=== PATIENT | female | born 1950 | race Caucasian/White ===

== ENCOUNTER → 2024-02-05 11:18 | Outpatient (REF) | payer OTHER, SELFPAY | LOC: REG 11:18 | PROVIDERS: ATTENDING PHYSICIAN Family Medicine | DX: M25.532 Pain in left wrist (principal) | CPT/HCPCS: 73110 ==

== ENCOUNTER 2024-08-06 12:49 | Emergency (ER) | payer OTHER, SELFPAY ==
[2024-08-06 12:52] VITALS: BP 143/86
[2024-08-06 14:04] LABS: % Basophils 0.3 % (0-2); % Eosinophils 0.5 % (0-6); % Immature Granulocytes 0.2 % (0-0.5); % Lymphocytes 22.7 % (20.5-51.1); % Monocytes 8.5 % (1.7-9.3); % Neutrophils 67.8 % (42.2-75.2); Absolute Lymphocytes 1.4 10^3/uL (1.2-3.4); Absolute Monocytes 0.5 10^3/uL (0.1-0.6); Absolute Neutrophils 4.2 10^3/uL (1.4-6.5); Hematocrit 39.3 % (37.0-47.0); Hemoglobin 13.5 g/dL (12.0-16.0); Mean Corp Hgb Conc. 34.4 g/dL (33.0-37.0); Mean Corpuscular Volume 96.1 fL (81.0-99.0); Nucleated Red Blood Cells % 0 %; Platelet Count 222 10^3/uL (130-400); Red Blood Cell Count 4.09 10^6/uL (4.20-5.40); Red Cell Dist. Width 13.7 % (11.5-14.5); White Blood Cell Count 6.2 10^3/uL (4.8-10.8)
--- NOTE | 2024-08-06 14:04 | ED.GENMED ---
History of Present Illness
General
Chief Complaint: Anxiety
Source: patient and spouse
Time Seen by Provider: 08/06/24 13:33
History of Present Illness
History of Present Illness:
74-year-old female with past medical history of hypothyroidism and newly suspected short-term memory loss being sent to the emergency department by her neurology office for evaluation after patient had a significant anxiety attack while at her
testing for the memory loss earlier today. Spouse and patient both notes she is much more calm now. Patient does admit to having frequent thoughts of what it would be like for her not to be on this earth and admits that she has had these thoughts
over many years but has no plan or intent to harm herself. Patient notes she goes to her primary care doctor regularly who monitors her thyroid. No changes to medications recently. No fevers or infectious symptoms. Patient without any physical
concerns at this time.
Past History
Past History
ED Past Medical History: Hypothyroidism and Other (migraine)
ED Past Surgical History: Gynecological and Tonsilectomy
Social History
Tobacco: Non-smoker
Alcohol: Occasional
Drug: None
Personal:
Living: with family
Family History
Family History: Negative Diabetes or Early CAD
Review of Systems
Review of Systems
All Other Systems: ROS reviewed and negative except as documented in HPI and ROS
Phy Exam
Physical Exam
Physical Exam:
GENERAL: Alert , in no apparent distress
EYE: conjunctiva clear
NECK: Supple
ENT: o/p clr, mmm.
CARDIAC: Regular rate and rhythm
LUNGS: Clear breath sounds bilaterally, no acute respiratory distress, no wheezes/rales/rhonchi
NEUROLOGICAL: Alert and oriented
SKIN: Warm and dry, skin intact.
MUSCULOSKELETAL: well perfused.
PSYCH: Normal and appropriate interaction.
Scores
Heart Failure Risk
Heart Failure Risk Score: Not Applicable
Heart Score for Chest Pain Patients
STEMI patient?: Not applicable
Withdrawal Assessment of Alcohol
Withdrawal Assessment Completed?: Not applicable
Course
Orders/Labs/Results
Orders:
Orders
08/06/24 12:57
1:1 Observation - Suicide/ Violent Behavior As Directed
Crisis Consult Urgent
Reason for Consult: SI
08/06/24 13:53
Complete Blood Count/With Diff Urgent
Comprehensive Metabolic Panel Urgent
TSH Urgent
Abnormal Lab Results
08/06/24
13:53
RBC 4.09 L 10^6/uL
(4.20-5.40)
MCH 33.0 H pg
(27.0-31.0)
08/06/24 13:53
Vital Signs
Initial and Last Documented VS:
Initial Vital Signs
Temp Pulse Resp BP Pulse Ox
98.3 F 82 16 143/86 98
08/06/24 12:52 08/06/24 12:52 08/06/24 12:52 08/06/24 12:52 08/06/24 12:52
Last Documented Vital Signs
Temp Pulse Resp BP Pulse Ox
98.3 F 82 16 143/86 98
08/06/24 12:52 08/06/24 12:52 08/06/24 12:52 08/06/24 12:52 08/06/24 12:52
MDM/Problems Addressed
Differential Diagnosis Includes:
Anxiety/panic attack, depressive disorder, early dementia, thyroid disorder
MDM/Problems Addressed:
74-year-old female presenting to the emergency department for evaluation after having an anxiety attack while at neurotesting today for her short-term memory loss. Patient sent to the ER for medical screening exam to be cleared for crisis
consultation. Patient without any physical complaints at this time. Does admit to thoughts of not being on this earth but no specific plan or intent to harm herself. Medical screening labs ordered. Will consult crisis team.
*Pulse Oximetry
Patient hypoxic: no
*Critical Care Note
Total Time (30-74mins, 75-104mins- exclusive of procedures): Not Applicable
Data Reviewed
Review of Other/Old Records Reveals: Labs and Records
Source: patient, records and spouse
Patient Management
Escalation/DeEscalation of care consider admission/obs:
Patient seen by Kyle Guajardo. Stable for outpatient management with PCP and neuropsych as scheduled. Patient and significant other aware of return precautions to the ER
ED Attending Note
-
Portions of this chart may have been created with voice recognition software.� Occasional wrong word or��sound alike� substitutions may have occurred due to the inherent limitations of voice recognition software.
Discharge Plan
Departure
Patient Disposition: Home (Routine Discharge)
Date of Disposition: 08/06/24
Time of Disposition: 14:20
Patient with high blood pressure during this ER visit?: No
Discharge Problem:
Anxiety
Instructions: Anxiety, Adult (DC)
Prescriptions:
No Action
amoxicillin-pot clavulanate 1 TABLET tablet
1 tab PO Q12 Qty: 20 0RF
oxycodone-acetaminophen [Percocet] 5-325 mg tablet
1 tab PO Q8H PRN (Reason: pain) Qty: 10 0RF
Referrals:
Rene Patterson, DO [Family Provider] -
Interventions
Interventions:
*Risk Screen - Suicide Last Done: 08/06/24 12:55
*General Assessment Last Done: 08/06/24 14:32
*Neglect/Abuse Screening Last Done: 08/06/24 14:32
ED- Fall Risk Assessment Last Done: 08/06/24 14:32
*ED COVID-19 Vaccine History Last Done: 08/06/24 14:32
*Nursing Disposition Last Done: 08/06/24 14:32
ED- Cardiac Assessment Last Done: 08/06/24 14:32
ED- Neurological Assessment Last Done: 08/06/24 14:31
ED-Psychological Assessment Last Done: 08/06/24 14:31
ED- Pulmonary Assessment Last Done: 08/06/24 14:32
Discharge Date and Time
Print Language: UZBEK
[2024-08-06 14:32] VITALS: BMI 24.6
[2024-08-06 14:34] LABS: ALT (SGPT) 19 U/L (0-35); AST (SGOT) 30 U/L (14-36); Albumin 4.5 g/dl (3.5-5.0); Alkaline Phosphatase 163 U/L (38-126); Blood Urea Nitrogen 13 mg/dl (7-17); Calcium 9.9 mg/dl (8.4-10.2); Carbon Dioxide 26 mmol/L (22-30); Chloride 102 mmol/L (98-107); Estimated Creatinine Clearance 54 ml/min; Glucose 107 mg/dl (70-99); Potassium 3.6 mmol/L (3.5-5.1); Sodium 142 mmol/L (135-145); Total Bilirubin 0.9 mg/dl (0.2-1.3); Total Protein 7.3 g/dl (6.3-8.2); eGFR > 60.00
[2024-08-06 14:50] LABS: TSH < 0.02 uIU/ml (0.47-4.68)
== END 2024-08-06 14:33 | disposition home or self-care (01) ==
LOC: EMR 12:49
PROVIDERS: Physician Assistant Medical; EMERGENCY PHYSICIAN Student in an Organized Health Care Education/Training Program; FAMILY PHYSICIAN Family Medicine
DX: F41.9 Anxiety disorder, unspecified (principal); E03.9 Hypothyroidism, unspecified
CPT/HCPCS: 99283; 80053; 84443; 85025

== ENCOUNTER 2025-01-28 22:19 | Emergency (ER) | payer OTHER, SELFPAY ==
[2025-01-28 22:28] VITALS: BP 114/58
[2025-01-28 22:46] LABS: Hematocrit 45.6 % (37.0-47.0); Hemoglobin 15.1 g/dL (12.0-16.0); Mean Corp Hgb Conc. 33.1 g/dL (33.0-37.0); Mean Corpuscular Volume 93.6 fL (81.0-99.0); Mean Platelet Volume 8.7 fL (7.4-10.4); Platelet Count 284 10^3/uL (130-400); Red Blood Cell Count 4.87 10^6/uL (4.20-5.40); Red Cell Dist. Width 12.4 % (11.5-14.5)
[2025-01-28 22:59] LABS: Blood Urea Nitrogen 4 mg/dl (7-17); Calcium 9.3 mg/dl (8.4-10.2); Carbon Dioxide 29 mmol/L (22-30); Chloride 100 mmol/L (98-107); Estimated Creatinine Clearance 72 ml/min; Glucose 101 mg/dl (70-99); Sodium 141 mmol/L (135-145); eGFR > 60.00
--- NOTE | 2025-01-28 23:33 | ED.GENMED ---
History of Present Illness
General
Chief Complaint: Change in Mental Status
Source: patient
Exam Limitations: dementia
Time Seen by Provider: 01/28/25 23:17
Nursing documentation reviewed up to this point in time: agreed with
History of Present Illness
History of Present Illness:
74-year-old female apparently brought in by EMS boyfriend called she has had frequent falls agitated she has dementia apparently cannot care for her anymore
Past History
Past History
ED Past Medical History: Hypothyroidism and Other (migraine)
ED Past Surgical History: Gynecological and Tonsilectomy
Social History
Tobacco: Non-smoker
Alcohol: Occasional
Drug: None
Personal:
Living: with family
Employment: Not employed
Family History
Family History: Negative Diabetes or Early CAD
Review of Systems
Review of Systems
All Other Systems: Not applicable
Phy Exam
Physical Exam
Physical Exam:
Physical Exam
General: 74-year-old female confused, moves all extremities
Neck: No tongue
Heart: s1/s2 regular rate and rhythm, no murmur. equal radial pulses.
Lungs: no acute respiratory distress. clear bilaterally
Neuro: Moves all extremities confused oriented to person
Skin: no rash
Psychiatric: Agitated at time
Extremities: no edema.
Course
Orders/Labs/Results
Orders:
Orders
01/28/25 22:38
Basic Metabolic Panel Urgent
CBC/No Diff [Complete Blood Count/No Diff] Urgent
01/28/25 23:30
Haloperidol Lactate [Haldol] 3 mg IM NOW STA
01/28/25 23:31
Straight cath- Treatment ONCE
01/29/25 00:09
UA Reflex to Culture [Urinalysis Reflex To Culture] Urgent
Date Specimen was Collected: 01/29/25
Time Specimen was Collected: 00:04
Urine Microscopic Reflex Cult Urgent
Urine Culture Urgent
JENNIFER Source: U
Specimen Description:
Date Specimen was Collected: 01/29/25
Time Specimen was Collected: 00:04
01/29/25 00:43
Haloperidol Lactate [Haldol] 5 mg .ROUTE .STK-MED ONE
01/29/25 01:00
Case Management Consult ONCE
Case Management Consult: Discharge Planning
01/29/25 01:45
CT Cervical Spine W/o Iv Contr Urgent
Reason For Exam: fall
CT Head W/o Iv Contrast Urgent
Reason For Exam: fall
Abnormal Lab Results
01/28/25 01/29/25
22:38 00:09
BUN 4 L mg/dl
(7-17)
Creatinine 0.5 L mg/dL
(0.6-1.0)
Glucose 101 H mg/dl
(70-99)
Leukocyte Esterase Rfl 1+ A
(Negative)
Urine WBC (Reflex) 21-25 A /HPF
(0-5)
Urine Bacteria (Reflex) Many A
(Negative)
01/28/25 22:38
01/28/25 22:38
Vital Signs
Initial and Last Documented VS:
Initial Vital Signs
Temp Pulse Resp BP Pulse Ox
97.6 F 91 16 114/58 99
01/28/25 22:28 01/28/25 22:28 01/28/25 22:28 01/28/25 22:28 01/28/25 22:28
Last Documented Vital Signs
Temp Pulse Resp BP Pulse Ox
97.6 F 87 21 114/58 99
01/28/25 22:28 01/28/25 23:15 01/28/25 23:15 01/28/25 22:28 01/28/25 22:28
MDM/Problems Addressed
Differential Diagnosis Includes:
Dementia psychosis UTI not appear to be intoxicated occult trauma
MDM/Problems Addressed:
Agitation
Chronic conditions affecting care: Neurological disorder and Psychiatric illness
Acute Exacerbation and/or Progression of Chronic Illness: Neurological disorder and Psychiatric illness
*Critical Care Note
Total Time (30-74mins, 75-104mins- exclusive of procedures): Not Applicable
Update Note
Update Note:
Update labs noted CTs noted patient calm after Haldol per RN
1:10 AM call to significant other primary contact to see if he is able to take her home
Voicemail left
2:10 AM patient resting comfortably at this point I see no indication for medical admission
ED Attending Note
-
Portions of this chart may have been created with voice recognition software.� Occasional wrong word or��sound alike� substitutions may have occurred due to the inherent limitations of voice recognition software.
Discharge Plan
Departure
Prescriptions:
No Action
amoxicillin-pot clavulanate 1 TABLET tablet
1 tab PO Q12 Qty: 20 0RF
oxycodone-acetaminophen [Percocet] 5-325 mg tablet
1 tab PO Q8H PRN (Reason: pain) Qty: 10 0RF
Referrals:
UNKNOWN - PT DOES,NOT KNOW [Family Provider] -
Interventions
Interventions:
*Risk Screen - Suicide Last Done: 01/28/25 22:28
*General Assessment Last Done: 01/28/25 22:28
*Neglect/Abuse Screening Last Done: 01/28/25 22:37
*ED- Fall Risk Assessment Last Done: 01/28/25 22:28
*ED COVID-19 Vaccine History Last Done: 01/28/25 22:28
ED- Neurological Assessment Last Done: 01/28/25 22:28
Discharge Date and Time
Print Language: UPPER SORBIAN
[2025-01-28] MEDS: HALDOL 3 MG IM (23:35)
[2025-01-29] VITALS (10 sets, daily range): BP systolic 123–144; BP diastolic 43–71
[2025-01-29 00:36] LABS: Urine Albumin Negative (Neg - Trace); Urine Bilirubin Negative (Negative); Urine Character Clear (Clear); Urine Color Yellow; Urine Glucose Negative (Negative); Urine Ketone Negative (Negative); Urine Leukocyte 1+ (Negative); Urine Nitrite Negative (Negative); Urine Occult Blood Negative (Negative); Urine Specific Gravity 1.005 (<1.030); Urine Urobilinogen Negative (Neg - 1+)
[2025-01-29 01:42] LABS: Urine Bacteria Many (Negative); Urine Red Blood Cell 0-2 /HPF (0-2)
[2025-01-29 01:43] LABS: Urine White Cell 21-25 /HPF (0-5)
--- NOTE | 2025-01-29 08:36 | CM ---
Addendum entered by Kiley Xie RN 01/29/25 11:13:
CM reviewed medical records. Patient has been recommended for outpatient [facility]. CM provided boyfriend with information on [facility]. CM further provided information on [facility].
CM discussed medical POA for patient. CM provided written information on Advanced Directives.
Addendum entered by Kiely Xie RN 01/29/25 09:23:
CM spoke with director regarding placement. CM was advised to request psychiatry consult for further assistance. CM advised patient's boyfriend that placement in SNF will be difficult due to patient's aggressive physical behavior.
CM updated emergency room physician.
Original Note:
CM reviewed medical records. CM met with patient and partner in room. Partner reports diagnosed dementia and reports that patient has been increasingly more agitated. Of note, patient was hitting staff while in the emergency room.
Patient's partner is agreeable to discuss [facility] placement. CM spoke with ER physician. Plan for crisis consult.
--- NOTE | 2025-01-29 10:44 | CON.MD ---
Consultation - Medical
-
patient seen chart reviewed. spoke with nursing and with dr melendez. the patient's partner of 12 years was at the bedside. partner describes that for three years patient has been increasingly memory impaired. at this point she is often very
fearful...she obsesses about things...lights she sees outside the window....whether the cats are taken care of etc etc. she can get a little agitated but never becomes aggressive physically although i am told there were isael e moments of aggression
here in the er when there was discussion of [facility] admit which patient refused.she was given haldol for agitation. she was seen by crisis who did not feel she met criteria for admit. the patient was actually being seen for neuro psych testing
but she only tolerated 15 minutes and she and partner left the office. the patient was indeed very cognitively impaired. she was oriented only to person. she could not answer most of the questions i asked even looked at partner when i asked her
how many children she had. she could not tell me how many times she had been (there) and whether her marriages ended in divorce or (the latter). she could not tell me what job she had prior to prison. at no point did she become
verbally or physically agitated. she admitted she is anxious and sometimes feels s/w depressed but has never felt she needed to seek rx other than talking in the past to her pcp. she is not suicidal. she was not obviously psychotic although i
wondered if some of her concners re 'lights' had to do with fears that someone was watching her but when i asked this she said no. sleep and appetite fair.
past psych hx see above.
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
fh denied
substance abuse denied
social resides w partner of 12 years. thrice two kids patient has grandkids she sees retired
mse alert oriented to person only. speech sparse. could not answer many questions given significant memory impairment mood is neutral affect constricted no si no hi cognition very impaired likely prior normal intelligence insight judgment
impaired
dx dementia
plan patient is not agreeable to in patient psych and i do not feel she necessarily meets criteria. she was not at all agitated when i saw her. she would benefit from being seen by out pt [facility] psychiatrist. partners two children are ER docs at ""[employer] in [facility]. he will ask them to help with finding a [facility] psych who could see her. her son is willing to pay out of pocket. they may need to think about placement in a memory care unit at some point in the future. will check b12 folate
vit d and tsh w reflex to t4. if patient does become aggressive she could be 302 committed. family should consider a medical power of business control specialist .
[2025-01-29 12:00] LABS: Vitamin D, 25-OH*** 38.1 ng/mL (30-80)
[2025-01-29 12:14] LABS: TSH Reflex To Free T4 < 0.02 uIU/ml (0.47-4.68)
--- NOTE | 2025-01-29 12:18 | ED.CRISIS ---
ED Crisis Note
ED Crisis Note
Subjective:
Patient resting comfortably. Partner at bedside. No complaints from patient or partner. Patient is not been agitated or combative since last night.
Objective:
General: Resting comfortably in bed watching TV
Respiratory: No respiratory distress
Cardio: Regular rate and rhythm
Psych: No active SI, HI, hallucinations delusions or agitation
Assessment/Plan:
Patient signed out pending case management evaluation. Case management unfortunately cannot place patient given patient's agitation. Psychiatry then evaluated patient. At this time patient is not agreeable to inpatient psych and she does not meet
criteria. She has not been agitated. Patient's partner states that it was more the confusion that he was concerned about. After a lengthy discussion with patient, patient's partner and psych they will find outpatient [facility]. They were
advised if she were to become aggressive at home to bring her to the emergency department for [address] orders for vitamin and thyroid. We did call lab and unfortunately these results will not be available for hours.
Patient's partner is requesting to go home which is appropriate while these results are pending.
[2025-01-29 12:41] LABS: Free T4 1.71 ng/dl (0.78-2.19)
[2025-01-29 12:50] LABS: Folate 10.8 ng/ml (2.76-20); Vitamin B12 711 pg/ml (239-931)
== END 2025-01-29 13:21 | disposition home or self-care (01) ==
LOC: EMR 22:19
PROVIDERS: Emergency Medicine; CONSULT PHYSICIAN Psychiatry & Neurology Psychiatry; EMERGENCY PHYSICIAN Emergency Medicine
DX: F03.911 Unspecified dementia, unspecified severity, with agitation (principal); E03.9 Hypothyroidism, unspecified
CPT/HCPCS: 99284; 70450; 72125; 80048; 81003; 81015; 82306; 82607; 82746; 84439; 84443; 85027; 87077; 87086; 87186

== ENCOUNTER 2025-05-15 02:18 | Inpatient (IN) | payer OTHER, SELFPAY ==
[2025-05-14 21:33] VITALS: BP 110/61
[2025-05-14 21:37] VITALS: BP 110/61
[2025-05-14 21:43] VITALS: BMI 22.0
[2025-05-14 23:09] LABS: AST (SGOT) 54 U/L (14-36); Alkaline Phosphatase 163 U/L (38-126); Blood Urea Nitrogen 8 mg/dl (7-17); Calcium 8.9 mg/dl (8.4-10.2); Carbon Dioxide 21 mmol/L (22-30); Chloride 95 mmol/L (98-107); Estimated Creatinine Clearance 41 ml/min; Glucose 97 mg/dl (70-99); Lipase 163 U/L (23-300); Potassium 1.9 mmol/L (3.5-5.1); Sodium 127 mmol/L (135-145); Total Bilirubin 2.1 mg/dl (0.2-1.3); Total Protein 6.8 g/dl (6.3-8.2); eGFR 58.39
[2025-05-14 23:19] LABS: Urine Albumin 1+ (Neg - Trace); Urine Bilirubin Negative (Negative); Urine Character Clear (Clear); Urine Color Yellow; Urine Glucose Negative (Negative); Urine Ketone Negative (Negative); Urine Leukocyte 2+ (Negative); Urine Nitrite Positive (Negative); Urine Occult Blood 2+ (Negative); Urine Urobilinogen Negative (Neg - 1+)
[2025-05-14 23:20] LABS: ALT (SGPT) 45 U/L (0-35)
[2025-05-14 23:32] LABS: Urine Bacteria Moderate (Negative); Urine White Cell 26-30 /HPF (0-5)
--- NOTE | 2025-05-14 23:34 | ED.GENMED ---
History of Present Illness
General
Chief Complaint: Failure to Thrive
Source: patient, spouse, family (Son who is also at bedside) and previous hospital records (ED visit January of this year with concerns for dementia, agitation. Evaluated by psychiatrist. Discharged to home.)
Exam Limitations: dementia
Time Seen by Provider: 05/14/25 23:29
Nursing documentation reviewed up to this point in time: agreed with
History of Present Illness
History of Present Illness:
This is a 74-year-old woman who resides at home with her . She has history of advanced dementia with intermittent episodes of agitation. Evaluated in this ED January of this year with concern for progressive memory loss over several years
with newer onset of agitation, aggression. Required a dose of Haldol during that ED visit. Was evaluated by psychiatrist. There was no evidence of psychosis. Patient declined inpatient psychiatric treatment and was discharged to home with
recommendations to follow-up with geropsychiatry. According to they did have an initial visit with [facility] psychiatrist but patient became agitated and left within 15 minutes.
She has had slow steady decline in functioning over the past 2 months and more recently has had very poor oral intake over the past several days with onset of diarrhea over the past several days. Progressive weakness over the past few days. There
has been no report of fever, no fall.
She has history of hypothyroidism, maintained on Synthroid.
TSH during ED visit January of this year showed significantly suppressed TSH with normal free T4. does not believe Synthroid was adjusted. At this point is unclear if she has been taking her medication.
Past History
Past History
ED Past Medical History: Hypothyroidism, Psychiatric (Dementia) and Other (migraine)
ED Past Surgical History: Gynecological and Tonsilectomy
Social History
Tobacco: Non-smoker
Alcohol: Occasional
Drug: None
Personal:
Living: with family
Employment: Not employed
Family History
Family History: Negative Diabetes or Early CAD
Phy Exam
Physical Exam
Physical Exam:
GENERAL: 74-year-old woman appears her stated age, awake and alert, minimally verbal. Sporadically answering yes and no questions appropriately. and son are at bedside providing majority of history.
EYE: pupils equal and reactive. anicteric
NECK: Supple, nontender, no meningismus, no significant adenopathy.
ENT: posterior pharynx is clear, oral mucosa is mildly dry. No rhinorrhea.
CARDIAC: Regular rate and rhythm. no murmur.
LUNGS: Clear breath sounds bilaterally, no acute respiratory distress, no wheezes/rales/rhonchi
ABDOMEN: Soft, nondistended, without focal tenderness, no r/g, no cvat. normoactive BS.
NEUROLOGICAL: Awake and alert, oriented x 2, no focal neuro deficits.
SKIN: Warm and dry, normal color, skin intact. No rash.
MUSCULOSKELETAL: No C/C/E. peripheral pulses are full and equal b/l. No palpable tenderness.
PSYCH: Awake and alert, oriented x 2. Moderately guarded. Sparse speech.
Course
Orders/Labs/Results
Orders:
Orders
05/14/25 22:13
IV Insert/Care/Rem.- Treatment PRN
05/14/25 22:33
Complete Blood Count/With Diff Urgent
Comprehensive Metabolic Panel Urgent
Direct Bilirubin Urgent
Comment: ADD ON
Lipase Urgent
Magnesium Urgent
TSH Reflex To Free T4 Urgent
05/14/25 22:59
Straight cath- Treatment ONCE
05/14/25 23:03
Osmolality, Random Urine Urgent
Date Specimen was Collected: 05/14/25
Time Specimen was Collected: 22:59
Comment: ADD ON
Urinalysis Reflex To Culture Urgent
Date Specimen was Collected: 05/14/25
Time Specimen was Collected: 22:59
Urine Microscopic Reflex Cult Urgent
Urine Culture Urgent
JENNIFER Source: U
Specimen Description:
Date Specimen was Collected: 05/14/25
Time Specimen was Collected: 22:59
05/14/25 23:16
EKG [Electrocardiogram (*1)] Urgent
Reason for Study: Abdominal Pain
EKG- Treatment ONCE
05/14/25 23:48
0.9% Sodium Chloride 1000 ml [Nss] 1,000 ml IV 150 mls/hr
Metoclopramide [Reglan] 5 mg IV NOW STA
05/14/25 23:50
Magnesium Sulfate 2 Gram/50 ml [Magnesium Sulfate] 2 gram in 50 ml IV NOW
Potassium Chloride [KCl] 40 meq PO NOW STA
05/14/25 23:56
Add On- LAB Urgent
Tests Added?: LFT's, lipase
05/15/25 00:00
Potassium Chloride [KCl] 40 meq 0.9% Sodium Chloride 250 ml [Nss] 250 ml IV NOW
05/15/25 01:03
US Abdomen Complete/Upper Urgent
Comment:
Reason For Exam: vomiting, elevated LFT's.
05/15/25 01:04
CefTRIAXone [Rocephin] 1,000 mg IV NOW STA
05/15/25 01:07
Add On- LAB Urgent
Tests Added?: TSH w reflex to free T-4
05/15/25 01:39
Admit/Transfer Patient As Directed
Co-Sign Provider:
Level of Care: Inpatient admission
Assign to:: Telemetry
Physician / Group: Iveth
Diagnosis: Hypokalemia
Reason for Telemetry: Other
Other Reason for Telemetry: severe Hypokalemia
Date to Stop Telemetry: 05/17/25
Time to Stop Telemetry: 11:00
Reason for Hospitalization: severe hypokalemia and dehydration
Expected length of stay greater than two midnights?: Yes
ELOS- Estimated Length of Stay in days: 2
I certify the patient meets the requirements for IP care: Yes
PRN Pain Medication Management As Directed
May give lesser potent ordered pain med per pt: Yes
preference::
Protocol:: Medication orders for pain may be administered in a
manner that supports deferring to patient preference
when the pt is:
- Requesting an ordered lesser potent pain medication.
Least to most potent pain medications are defined
as: acetaminophen < NSAID < tramadol < opioids
(morphine, oxycodone, hydromorphone).
- Requesting a lesser dose of the same medication IF
ORDERED.
- Requesting a less intrusive route of administration
if both routes are prescribed by the provider (PO <
IV).
05/15/25 01:42
Code Status As Directed
Resuscitation Status: Full Code
05/15/25 01:54
Osmolality, Random Urine Routine
Urine Sodium Routine
05/15/25 03:13
Acetaminophen [Tylenol] 650 mg PO Q4HPRN PRN
Dextrose 5%/0.9%Sodchl 1000 ml [D5/0.9% Sodium Chloride] 1,000 ml Potassium Chloride [KCl] 40 meq Mvi, Adult [Multivitamin] 10 ml Magnesium Sulfate 1 grams Thiamine Injection 100 mg FOLic ACID [Folvite] 1 mg IV 125 mls/hr
Loperamide [Imodium] 2 mg PO Q4HPRN PRN
Mag Hydrox/Al Hydrox/Simeth [Maalox] 30 ml PO Q6HPRN PRN
Metoclopramide [Reglan] 5 mg IV Q6HPRN PRN
05/15/25 03:13
Activity As Directed
Activity Level: With Assistance
Vital Signs As Directed
Frequency: Per unit guidelines
O2 Therapy [RESP] Routine
Nasal Cannula Liter Flow: 2 LPM
Titrate/Wean O2 to maintain O2 sat greater than (%): 93
Pulse Ox/spot Check [RESP] Routine
Quantity: 1
DX Deep Vein Thrombosis Video Routine
05/15/25 Breakfast
Regular
At Your Request: Non-Participating
Basic Metabolic Panel IN AM
Complete Blood Count/No Diff IN AM
Folate IN AM
Magnesium IN AM
Vitamin B12 IN AM
Levothyroxine [Synthroid] 125 mcg PO DAILY @ 0600
05/15/25 08:00
Famotidine [Pepcid] 20 mg PO DAILY
Heparin 5,000 units SC Q8
Multivitamin [Theragran] 1 tablet PO DAILY
05/15/25 15:00
BMP [Basic Metabolic Panel] Routine
Magnesium Routine
05/16/25 00:00
CefTRIAXone [Rocephin] 1,000 mg IV Q24H
05/17/25 11:00
DC Protocol for Telemetry ONCE
Abnormal Lab Results
05/14/25 05/14/25
22:33 23:03
RBC 4.09 L 10^6/uL
(4.20-5.40)
MCH 35.5 H pg
(27.0-31.0)
MCHC 37.9 H g/dL
(33.0-37.0)
RDW 18.5 H %
(11.5-14.5)
Sodium 127 L mmol/L
(135-145)
Potassium 1.9 L* mmol/L
(3.5-5.1)
Chloride 95 L mmol/L
(98-107)
Carbon Dioxide 21 L mmol/L
(22-30)
Magnesium 1.3 L mg/dl
(1.6-2.3)
Total Bilirubin 2.1 H mg/dl
(0.2-1.3)
AST 54 H U/L
(14-36)
ALT 45 H U/L
(0-35)
Alkaline Phosphatase 163 H U/L
(38-126)
Ur Occult Blood Reflex 2+ A
(Negative)
Urine Nitrite (Reflex) Positive A
(Negative)
Leukocyte Esterase Rfl 2+ A
(Negative)
Urine RBC 3-6 A /HPF
(0-2)
Urine WBC (Reflex) 26-30 A /HPF
(0-5)
Urine Bacteria (Reflex) Moderate A
(Negative)
Urine Osmolality 232 L mOsm/kg
(300-900)
Urine Albumin (Reflex) 1+ A
(Neg - Trace)
05/14/25 22:33
05/14/25 22:33
Vital Signs
Initial and Last Documented VS:
Initial Vital Signs
BP
110/61
05/14/25 21:33
Last Documented Vital Signs
Temp Pulse Resp BP Pulse Ox
98.7 F 63 22 99/54 100
05/15/25 03:33 05/15/25 03:33 05/15/25 03:33 05/15/25 03:33 05/15/25 03:33
MDM/Problems Addressed
Differential Diagnosis Includes:
Concern for dehydration, electrolyte abnormality, infectious colitis versus functional diarrhea, concern for exacerbation of thyroid disorder, UTI.
Significant concern for progression of dementia with now failure to thrive, refusal to eat etc.
Thus far patient has remained cooperative. There has been no episodes of aggression/agitation.
Vital signs within normal limits.
Labs thus far remarkable for severe hypokalemia with potassium of 1.9. Mild hyponatremia at 127. Normal BUN and creatinine. Minimally elevated LFTs and mildly elevated total bili at 2.1. Abdomen is soft without appreciable tenderness. Will
check abdominal ultrasound to assess for potential occult cholecystitis as cause for poor oral intake, diarrhea.
CBC is unremarkable.
Urinalysis concerning for UTI. Nitrite positive. Moderate bacteria. 26-30 WBCs.
EKG shows normal sinus rhythm at 60, prolonged QT with U waves. This is likely related to severe hypokalemia.
Will urgently replete potassium with IV K rider and will give an oral dose of potassium as well. She does note intermittent mild nausea, no episodes of vomiting but will give IV dose of Reglan for nausea. Will avoid Zofran due to prolonged QT.
History of hypothyroidism, questionable compliance with Synthroid. TSH suppressed on testing in January with normal free T4. Will reassess.
Chronic conditions affecting care: Neurological disorder (Advanced dementia), Psychiatric illness and Other (Hypothyroidism with suppressed TSH noted on testing January of this year)
*Radiology
Radiology exam reviewed: radiology read reviewed (Abdominal ultrasound-Limited study due to portable exam but gallbladder appears within normal limits. No stones nor sludge. No wall thickening nor pericholecystic fluid.)
*Pulse Oximetry
SaO2: 100
Oxygen Mode of Delivery: Room air
Patient hypoxic: no
*EKG
Interpreted by ED Provider?: Yes
Interpretation: abnormal
Comparison EKG: changes noted (Long QT is new compared to previous EKG October 2021)
Rate: normal
Rhythm: sinus
[place]: normal axis
Interval: long QT
QRS Pattern: normal QRS and poor R-wave progression
Ischemia: non-specific ST changes
*Food And Nutrition Services Assistant Interpretation
Rate: normal
Interpretation: normal
Rhythm: sinus
*Critical Care Note
Total Time (30-74mins, 75-104mins- exclusive of procedures): 30
comment:
Critical care statement: A total of 30 minutes of critical care time was provided for this patient. This includes management of unstable vital signs, evaluation of the patient at bedside, reviewing the patient's pertinent medical records, discussion
with consultants, review of old EKGs and review of pertinent medical records. This time with separate from time utilized to perform the aforementioned documented procedures
Comment
Comment:
significant risk of lethal arrhythmia
Update Note
Update Note:
Patient tolerated oral dose of potassium and thus far tolerating K rider.
Borderline hypotension without tachycardia. She remains afebrile.
Awaiting abdominal ultrasound and TSH.
Son remains at bedside. He is power of deputy county attorney. Patient resides with her long-term partner; they are not .
We discussed advanced directives, resuscitation etc. At this point patient is full code. He does note that his mother would not wish for life-sustaining measures if there is no hope for significant recovery.
He also notes that his mother drinks a fair amount of alcohol. He is unsure if she is a daily drinker.
Thus far no evidence of alcohol withdrawal but will monitor closely.
Will admit to hospitalist service.
ED Attending Note
-
Portions of this chart may have been created with voice recognition software.� Occasional wrong word or��sound alike� substitutions may have occurred due to the inherent limitations of voice recognition software.
Discharge Plan
Departure
Patient Disposition: Admit
Date of Disposition: 05/15/25
Time of Disposition: 01:05
Admit to: Telemetry
Admit to doctor: Iveth
Presentation/result/management discussed w/ accepting MD/DO: Hospitalist
Condition: Serious
Discharge Problem:
severe hypokalemia, Moderate protein-calorie malnutrition, Advancing dementia, Urinary tract infection, Hypomagnesemia
Interventions
Interventions:
*Risk Screen - Suicide Last Done: 05/14/25 21:37
*General Assessment Last Done: 05/14/25 21:37
*Neglect/Abuse Screening Last Done: 05/14/25 21:37
*ED- Fall Risk Assessment Last Done: 05/14/25 21:44
*ED COVID-19 Vaccine History Last Done: 05/14/25 21:44
*Nursing Disposition Last Done: 05/15/25 03:09
Discharge Date and Time
Discharge Date/Time: 05/15/25 03:10
[2025-05-14 23:39] LABS: Magnesium 1.3 mg/dl (1.6-2.3)
[2025-05-14 23:41] LABS: % Basophils 0.7 % (0-2); % Eosinophils 0.2 % (0-6); % Immature Granulocytes 0.5 % (0-0.5); % Monocytes 7.5 % (1.7-9.3); % Neutrophils 60.1 % (42.2-75.2); Absolute Lymphocytes 1.7 10^3/uL (1.2-3.4); Absolute Monocytes 0.4 10^3/uL (0.1-0.6); Absolute Neutrophils 3.3 10^3/uL (1.4-6.5); Hematocrit 38.3 % (37.0-47.0); Hemoglobin 14.5 g/dL (12.0-16.0); Mean Corp Hgb Conc. 37.9 g/dL (33.0-37.0); Mean Corpuscular Hgb 35.5 pg (27.0-31.0); Mean Corpuscular Volume 93.6 fL (81.0-99.0); Mean Platelet Volume 9.3 fL (7.4-10.4); Nucleated Red Blood Cells % 0 %; Platelet Count 226 10^3/uL (130-400); Red Blood Cell Count 4.09 10^6/uL (4.20-5.40); Red Cell Dist. Width 18.5 % (11.5-14.5); White Blood Cell Count 5.5 10^3/uL (4.8-10.8)
[2025-05-14 23:45] VITALS: BP 91/50
[2025-05-14] MEDS: REGLAN 5 MG IV (23:59)
[2025-05-15] VITALS (12 sets, daily range): BP systolic 83–135; BP diastolic 43–91
[2025-05-15] MEDS: MAGNESIUM SULFATE 50 IV (00:02)
[2025-05-15] MEDS: KCL 40 MEQ PO (00:07)
[2025-05-15] MEDS: NSS 1000 IV ×2 (00:22→14:28)
[2025-05-15] MEDS: KCL 270 MEQ IV ×2 (00:23→08:10)
[2025-05-15 00:44] LABS: Direct Bilirubin 0.4 mg/dl (0.0-0.4)
--- NOTE | 2025-05-15 01:06 | HPS.HSE ---
Family Physician
-
Family Physician: NOT KNOW UNKNOWN - PT DOES
Chief Complaint
-
Weakness, failure to thrive
History of Present Illness
This is a 74-year-old female who has past medical history of advanced dementia, hypothyroid presenting to the emergency department with essentially failure to thrive.
She has 1 week of decreased p.o. intake. Progressive dementia. Diarrhea. No fevers chills or falls. Does not endorse any urinary symptoms. Has been no nausea or vomiting. Has been no abdominal discomfort.
According to son (poor power of immigration attorney) patient has been struggling for about 1 year with decreasing p.o. due to complaints about stomach upset nausea and abdominal discomfort. She believes she had a stomach virus. Is unclear whether this is
psychosomatic functional or pathological. She has lost a lot of weight and she actually had a fall due to balance issues recently. She has known history of vertigo and lightheadedness.
Over the last 1 week the decreasing p.o. has become much more severe and she last had solid meal about 1 week ago. She has been having intermittent watery stools incontinence and diarrhea. She also has been having urinary frequency. She has been
having increased somnolence, sleeping 16 hours a day and essentially laying in bed otherwise.
She has been no changes in her medications and she has remained on the levothyroxine 1.5 mcg daily. Compliance is unclear. She has been lost to follow-up for 1 year from a primary care doctor and a pediatric neurologist.
In the emergency department she had a temp of 98.6, blood pressure of 90/50, pulse of 64. ECG shows sinus rhythm at rate of 60 without ischemic changes. QTc was prolonged at 582.
CBC was unremarkable.
Electrolytes notable for a sodium of 127, potassium of 1.9, bicarb was normal at 21. BUN and creatinine were 8 and 1.0. Glucose was 97.
Magnesium was 1.3. Bilirubin 2.1, and LFTs were slightly abnormal.
Medical History
Past Medical History
Past Medical History: Reports Dementia, Hypothyroidism and Other (Migraine headaches)
Past Surgical History: Reports Tonsilectomy and Other
Social History
Tobacco: Non-smoker
Alcohol: None
Drug: None
Personal:
Living: With Family
Employment: Retired
Family History
Family History: Not pertinent
Allergies / Home Medications
Allergies reflects when Allergies were last updated in [facility].
Home Medications with original date entered in [facility]
Allergy/Medication List:
Allergies
Allergy/AdvReac Type Severity Reaction Status Date / Time
No Known Allergies Allergy Verified 08/06/24 12:54
Home Medications
bismuth subsalicylate 262 mg/15 mL oral suspension (Pepto-Bismol) 524 mg PO Q1H PRN stomach issues 05/14/25
levothyroxine 125 mcg tablet 125 mcg PO DAILY 05/14/25
uwpbxyak-vrfn-plih 8 mg-folic 400 mcg-K 50 mcg-lutein 300 mcg tablet (Centrum Silver Women) 1 tab PO DAILY 05/14/25
Review of Systems
-
History Source: Family
Constitutional: Reports Weight Loss and Sleep Disturbance
EENT: Reports No Symptoms
Respiratory: Reports No Symptoms
Cardiac: Reports No Symptoms
Abdomen/GI: Reports Nausea and Diarrhea
: Reports Frequency
Musculoskeletal: Reports No Symptoms
Skin: Reports No Symptoms
Neurological: Reports No Symptoms
Endocrine: Reports No Symptoms
Hematologic/Lymphatic: Reports No Symptoms
Psych: Reports No Symptoms
Physical Exam
Vital Signs
Vital Signs
Temp Pulse Resp BP Pulse Ox
98.6 F 64 21 91/50 100
05/14/25 21:37 05/14/25 23:45 05/14/25 23:45 05/14/25 23:45 05/14/25 23:34
Physical Exam
General: Poor Appetite
HEENT: NormoCephalic, Anicteric, Atraumatic and PERRLA
Respiratory: Clear
Cardiac: S1/S2 and Regular Rhythm
Breast: Deferred by me
GI: Non Tender, Non Distended and Normal Bowel Sounds
Rectal: Deferred by Provider
Genito-urinary: Deferred by me
Musculoskeletal: No Clubbing, No Cyanosis and No Edema
Skin: Warm
Neuro: Alert, Oriented (to person and place) and Nonfocal/grossly intact
Hematologic/Lymphatic: No Lymphadenopathy
Psych: Calm
Laboratory Results
-
05/14/25 22:33
05/14/25 22:33
Laboratory Results
Total Bilirubin 2.1 mg/dl (0.2-1.3) H 05/14/25 22:33
AST 54 U/L (14-36) H 05/14/25 22:33
ALT 45 U/L (0-35) H 05/14/25 22:33
Alkaline Phosphatase 163 U/L (38-126) H 05/14/25 22:33
Lipase 163 U/L (23-300) 05/14/25 22:33
Data Reviewed
-
Medical Tests (Nuc Med, Echo, EKG etc): Image Personally Visualized and interpreted
Lab Data: Labs Reviewed by me
Old Records: Reviewed
Impression/Plan
-
IMPRESSION:
74-year-old with progressive dementia and recent failure to thrive with 1 week history of decreased p.o. intake intermittent diarrhea, urinary frequency without fevers or chills. Found to have severe dehydration, abnormal electrolyte panel and a
positive UA consistent with urinary tract infection.
PLAN:
1. Hypokalemia -suspect chronic with poor p.o. intake in addition to recent episode of diarrhea. Bradycardia with QTc of 580. Magnesium of 1.3
- Admit to telemetry
- IV magnesium rider, oral magnesium supplementation
- IV potassium rider, oral potassium supplementation
- Patient is not on any diuretics.
2. Hyponatremia -sodium 127, clear history of dehydration and fluid losses family. No diuretics.
- Continue IV fluids with normal saline at 100 mL/h
- Repeat sodium in a.m.
- Check urine studies
- Check TSH has compliance with levothyroxine unknown
3. UTI -urinary frequency, positive UA with positive nitrites leukocyte esterase and WBCs with bacteria
- Urine culture sent
- IV ceftriaxone for now
4. Abdominal discomfort/diarrhea -patient not currently having diarrhea in the emergency department, unlikely CT. She has had no vomiting. Mild elevations in LFTs. Son reports chronic alcohol use but no recent use in the last few days.
- Trend LFTs
- Right upper quadrant ultrasound pending
- Check stool studies if diarrhea
- Imodium as needed
- Will continue to advance diet as tolerated, antiemetics, famotidine for now
5. hypothyroid - based on prescription hx, likely noncompliant and hypothyroid. Not hypothermic or myron and normal responsive just blunted. Suspect severe hypothyroid w/o myxedema. Given unknown last dose of levothyroxine, will start with iv
replacement
- continue levothyroxine iv 75mcg daily, home dose 125 mcg
- no myxedema coma, patient known to be hypothyroid and no h/o adrenal insufficiency, no indication for stress dose steroids
- tsh/free t4 pending,
FTT - Dementia with depression likely
- correct labs and treat uti
- given degree of food avoidance, consider appetite stimulant once K, mag corrected
- PT eval
DVT PPX - heparin sq
code status - full code
[2025-05-15] MEDS: ROCEPHIN 1000 MG IV ×2 (01:49→23:51)
[2025-05-15 02:14] LABS: Osmolality Urine 232 mOsm/kg (300-900)
[2025-05-15] MEDS: KCL 1033.2 MEQ IV (03:43)
[2025-05-15] MEDS: KCL 1033.2 GRAMS IV (03:43)
[2025-05-15] MEDS: KCL 1033.2 ML IV (03:43)
[2025-05-15] MEDS: KCL 1033.2 MG IV ×2 (03:43)
[2025-05-15 03:54] LABS: Free T4 0.13 ng/dl (0.78-2.19)
[2025-05-15] MEDS: SYNTHROID 125 MCG PO (06:14)
[2025-05-15 07:32] LABS: Hematocrit 30.3 % (37.0-47.0); Hemoglobin 11.2 g/dL (12.0-16.0); Mean Corpuscular Hgb 35.7 pg (27.0-31.0); Mean Corpuscular Volume 96.5 fL (81.0-99.0); Mean Platelet Volume 9.8 fL (7.4-10.4); Platelet Count 222 10^3/uL (130-400); Red Blood Cell Count 3.14 10^6/uL (4.20-5.40); Red Cell Dist. Width 18.6 % (11.5-14.5); White Blood Cell Count 6.5 10^3/uL (4.8-10.8)
[2025-05-15 07:37] LABS: Blood Urea Nitrogen 6 mg/dl (7-17); Calcium 7.9 mg/dl (8.4-10.2); Carbon Dioxide 25 mmol/L (22-30); Chloride 104 mmol/L (98-107); Estimated Creatinine Clearance 41 ml/min; Glucose 125 mg/dl (70-99); Magnesium 2.3 mg/dl (1.6-2.3); Potassium 2.6 mmol/L (3.5-5.1); Sodium 135 mmol/L (135-145); eGFR 58.39
[2025-05-15] MEDS: THERAGRAN PO ×2 (08:10→09:47)
[2025-05-15] MEDS: PEPCID 20 MG PO (08:10)
[2025-05-15 08:39] LABS: Folate > 20.0 ng/ml (2.76-20); Vitamin B12 959 pg/ml (239-931)
[2025-05-15] MEDS: VITAMIN B1 100 MG PO (09:32)
--- NOTE | 2025-05-15 09:40 | W.PN.HOSP.TC ---
Today's Communication/Plan
-
CT A/P
Levothyroxine
Pt eval
Assessment / Plan
Assessment / Plan
74-year-old presented with failure to thrive. Decreased p.o. intake for the past week prior to admission. Son has been struggling for 1 year. Patient also has lost weight and had a fall recently. Intermittent diarrhea
Ultrasound of the abdomen Limited exam secondary to large abdominal gas and intermittent inability to cooperation. Suboptimal visualization of pancreas kidneys and spleen. No gallstones. No gallbladder wall thickening or pericholecystic fluid CBD
not visualized. Liver is normal in size increased echotexture and diminished sound throughout transmission consistent of fatty infiltration.
CVS: S1-S2 normal
Chest: CTA B/L
Abdomen: Soft, NT / Bowel sounds present
Extremities: No edema
DURABLE MEDICAL EQUIPMENT TECHNICIAN: Non focal exam, confused.
# FTT
Unclear reasons possibly diarrhea/poor p.o. intake /hypomagnesemia/Poorly managed Hypothyroidism.
Replace potassium and magnesium
Check B12
Add Thiamine
# Hypokalemia
Unclear reasons possibly diarrhea/poor p.o. intake /hypomagnesemia/Poorly managed Hypothyroidism.
Replace potassium and magnesium
# Hypomagnesemia-replaced
# Hyponatremia-sodium 127-corrected
Possibly hypovolemic
Also TSH indicates that the patient was likely not taking levothyroxine
# Elevated LFTs-repeat
# Hypothyroidism-question compliance as the TSH is 134
On levothyroxine 125 mcg daily
Currently on IV 75 Mcg daily.
# UTI- IV Rocephin and wait for Cx
# Weight loss-check CT of the abdomen and pelvis with PO and IV contrast
# Intermittent diarrhea
Likely has chronic constipation
Check imaging of the abdomen
# Migraines
# Dementia
# DVT prophylaxis-Lovenox
# Full code
D/W RN at bed side
Called 'SO' deferred to Son. He does not think that the patient was taking her thyroid medicines in the past month.
Tried to contact Son Wil-at [phone] seems to be a wrong number. The number given to me by significant other was [phone] also seems to be a wrong number.
Part of this note was created using voice recognition system. Occasional wrong word or��sound alike� substitutions may have inadvertently occurred due to the inherent limitations of voice recognition software. If noted kindly bring it to my
attention for correction.
Anticipated Discharge: 24 - 48 hours
Subjective/Interval History
-
Date of Service: May 15, 2025
Objective Data
-
Labs:
Laboratory Results
05/14/25 05/15/25 05/15/25
22:33 06:44 15:00
WBC 5.5 6.5
Hgb 14.5 11.2 L D
Hct 38.3 30.3 L
Plt Count 226 222
Sodium 127 L 135 D Pending
Potassium 1.9 L* 2.6 L* D Pending
Chloride 95 L 104 Pending
Carbon Dioxide 21 L 25 Pending
BUN 8 6 L Pending
Creatinine 1.0 1.0 Pending
Glucose 97 125 H Pending
Calcium 8.9 7.9 L Pending
Total Bilirubin 2.1 H
AST 54 H
ALT 45 H
Alkaline Phosphatase 163 H
Vital Signs:
Vital Signs
Temp Pulse Resp BP Pulse Ox
98.5 F 63 18 107/59 99
05/15/25 07:00 05/15/25 07:00 05/15/25 07:00 05/15/25 07:00 05/15/25 07:00
[2025-05-15] MEDS: OMNIPAQUE 50 ML PO (09:55)
[2025-05-15 11:34] LABS: Vitamin D, 25-OH*** 23.6 ng/mL (30-80)
[2025-05-15] MEDS: THIAMINE INJECTION 100 MG IV (11:37)
[2025-05-15] MEDS: LOVENOX 40 MG SC (17:29)
[2025-05-15] MEDS: LEVOTHROID 75 MCG IV (17:29)
--- NOTE | 2025-05-15 18:24 | PTCARENOTE ---
Patient unable / refused to drink oral contrast for abd CT as ordered. aware. Will try tomorrow.
[2025-05-15 18:48] LABS: Blood Urea Nitrogen 5 mg/dl (7-17); Carbon Dioxide 22 mmol/L (22-30); Chloride 111 mmol/L (98-107); Estimated Creatinine Clearance 52 ml/min; Glucose 94 mg/dl (70-99); Magnesium 2.2 mg/dl (1.6-2.3); Potassium 3.4 mmol/L (3.5-5.1); Sodium 137 mmol/L (135-145); eGFR > 60.00
--- NOTE | 2025-05-15 19:30 | PTCARENOTE ---
Patient agitated and climbing out of bed, pulling tele off and pulling at IV sites. Advised covering provider. Orders received for restraints.
[2025-05-15] MEDS: FLUSH (NSS) 2 FLUSH IV (23:52)
[2025-05-15] MEDS: STERILE WATER FOR INJECTION 10 ML IV (23:52)
[2025-05-16] VITALS (7 sets, daily range): BP systolic 98–122; BP diastolic 51–60; PULSE 52; O2SAT 96
[2025-05-16 05:49] LABS: Hematocrit 32.2 % (37.0-47.0); Hemoglobin 11.5 g/dL (12.0-16.0); Mean Corp Hgb Conc. 35.7 g/dL (33.0-37.0); Mean Corpuscular Hgb 35.6 pg (27.0-31.0); Mean Corpuscular Volume 99.7 fL (81.0-99.0); Mean Platelet Volume 9.6 fL (7.4-10.4); Platelet Count 211 10^3/uL (130-400); Red Blood Cell Count 3.23 10^6/uL (4.20-5.40); Red Cell Dist. Width 19.3 % (11.5-14.5)
[2025-05-16 06:10] LABS: ALT (SGPT) 35 U/L (0-35); AST (SGOT) 51 U/L (14-36); Alkaline Phosphatase 135 U/L (38-126); Blood Urea Nitrogen 4 mg/dl (7-17); Calcium 7.9 mg/dl (8.4-10.2); Carbon Dioxide 23 mmol/L (22-30); Chloride 112 mmol/L (98-107); Direct Bilirubin 0.4 mg/dl (0.0-0.4); Estimated Creatinine Clearance 46 ml/min; Glucose 78 mg/dl (70-99); Potassium 2.8 mmol/L (3.5-5.1); Sodium 137 mmol/L (135-145); Total Bilirubin 0.9 mg/dl (0.2-1.3); Total Protein 5.4 g/dl (6.3-8.2); eGFR > 60.00
[2025-05-16 06:56] LABS: Urine Sodium 153 mmol/L (30-90)
[2025-05-16] MEDS: PEPCID 20 MG PO (08:05)
[2025-05-16] MEDS: THERAGRAN 1 TABLET PO (08:05)
[2025-05-16] MEDS: OMNIPAQUE 50 ML PO (08:05)
[2025-05-16] MEDS: THIAMINE INJECTION 100 MG IV (08:06)
[2025-05-16] MEDS: KCL 40 MEQ PO (08:39)
[2025-05-16] MEDS: KCL 270 MEQ IV (08:41)
[2025-05-16 09:50] LABS: Osmolality Urine 498 mOsm/kg (300-900)
--- NOTE | 2025-05-16 09:52 | W.PN.HOSP.TC ---
Today's Communication/Plan
-
Replace K
CT A/P
PT eval
Replace Levothyroxine
Await Urine CX
Assessment / Plan
Assessment / Plan
74-year-old presented with failure to thrive. Decreased p.o. intake for the past week prior to admission. Son has been struggling for 1 year. Patient also has lost weight and had a fall recently. Intermittent diarrhea
Ultrasound of the abdomen Limited exam secondary to large abdominal gas and intermittent inability to cooperation. Suboptimal visualization of pancreas kidneys and spleen. No gallstones. No gallbladder wall thickening or pericholecystic fluid CBD
not visualized. Liver is normal in size increased echotexture and diminished sound throughout transmission consistent of fatty infiltration.
CVS: S1-S2 normal
Chest: CTA B/L
Abdomen: Soft, NT / Bowel sounds present
Extremities: No edema
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
# FTT
Unclear reasons possibly diarrhea/poor p.o. intake /hypomagnesemia/Poorly managed Hypothyroidism.
Replace potassium and magnesium
Added Thiamine
# Hypokalemia
Unclear reasons possibly diarrhea/poor p.o. intake /hypomagnesemia/Poorly managed Hypothyroidism.
Replace potassium and magnesium
# Hypomagnesemia-replaced
# Hyponatremia-sodium 127-corrected
Possibly hypovolemic
Also TSH indicates that the patient was likely not taking levothyroxine
# Vit D Def- replace
# Elevated LFTs-repeat better.
# Hypothyroidism-question compliance as the TSH is 134
On levothyroxine 125 mcg daily
Currently on IV 75 Mcg daily.
# UTI- IV Rocephin and wait for Cx
# Weight loss-check CT of the abdomen and pelvis with PO and IV contrast
# Intermittent diarrhea
Likely has chronic constipation
Check imaging of the abdomen
# Migraines
# Dementia
# DVT prophylaxis-Lovenox
# Full code
D/W RN at bed side
Spoke to 'SO' yesterday who deferred to Son. He does not think that the patient was taking her thyroid medicines in the past month.
Tried to contact Son Wil-at [phone] seems to be a wrong number. The number given to me by significant other was [phone] also seems to be a wrong number.
Part of this note was created using voice recognition system. Occasional wrong word or��sound alike� substitutions may have inadvertently occurred due to the inherent limitations of voice recognition software. If noted kindly bring it to my
attention for correction.
Anticipated Discharge: 24 - 48 hours
Subjective/Interval History
-
Date of Service: May 16, 2025
Objective Data
-
Labs:
Laboratory Results
05/16/25
05:29
WBC 5.0
Hgb 11.5 L
Hct 32.2 L
Plt Count 211
Sodium 137
Potassium 2.8 L
Chloride 112 H
Carbon Dioxide 23
BUN 4 L
Creatinine 0.9
Glucose 78
Calcium 7.9 L
Total Bilirubin 0.9 D
AST 51 H
ALT 35
Alkaline Phosphatase 135 H
Vital Signs:
Vital Signs
Temp Pulse Resp BP Pulse Ox
98 F 52 16 108/60 96
05/16/25 07:05 05/16/25 07:05 05/16/25 07:05 05/16/25 07:05 05/16/25 07:05
I&O
05/15/25 05/16/25 05/17/25
06:59 06:59 06:59
Intake Total 690 / 690
Output Total 320 / 320
Balance 370 / 370
--- NOTE | 2025-05-16 10:30 | PTCARENOTE ---
with much encouragement and 1:1 able to get pt to ingest 1 cup of contrast. attempted 2nd cup pt starting to show signs of agitation. CT notified, able to take pt with partially completed dose, attending aware.
--- NOTE | 2025-05-16 12:08 | PTCARENOTE ---
pt increasing in agitation, pulled out IV- attempting redirection. family at bedside. Bed alarm in place.
--- NOTE | 2025-05-16 13:11 | CM ---
Initial assessment completed with significant other of 13 years, Mr. John Salgado. Patient and SO live in a 2 story home with a 1st floor setup and 8 steps to enter. 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 She has but won't
use a SPC, RW and rollator. No services in the home. PCP is Dr. Olmos and Pharmacy is [facility] in [place]. Discharge POC: SNF. No preferences.
--- NOTE | 2025-05-16 14:05 | CON.GS ---
Addendum entered and electronically signed by Rojas Daily MD 05/17/25 10:17:
I saw and examined the patient independently.
The [facility] [employer]'s note was reviewed and I agree with the note, assessment and plan except where noted below.
Comment: 74-year-old female with a history of dementia and hypothyroidism presents with abdominal discomfort of unclear etiology. She did undergo a CT scan which does demonstrate some colitis and some fat stranding in the right lower quadrant
however the appendix was visualized in the coronal axis and noted to be of normal diameter with air in the lumen. She is also not tender in the right lower quadrant. I have a low suspicion for acute appendicitis.
No acute surgical intervention warranted at this time.
Antibiotics per primary.
Surgery will sign off for now, please call with any questions or concerns or if patient's abdominal exam or condition changes.
I spent 60 minutes in total for the care of this patient today including direct patient care and counseling, reviewing labs, imaging, coordination of care, as well as documentation.
Original Note:
Consultation
-
Date/Time Consultation Performed: 05/16/25 1400
Requesting Provider: Tamara
Performing Provider: Kimber Daily
Reason for Consultation: Abnormal Ct
Medical History
-
Chief Complaint: chills
History of Present Illness:
Ms Hair is a 74 yo female with a h/o dementia and hypothyroidism seen at bedside with her son and partner. Over the last year, she has struggled with intermittent nonbloody diarrhea and has been recently physically declining with poor PO intakes
as well. Her son does note that for about a week she has mentioned she has some abdominal discomfort which she has not been able to localize and stating she may have the flu. She is currently being treated as an inpatient for UTI and FTT. On exam,
she has no abdominal tenderness or distention. Psoas sign not present. Her current complaint is that she is very cold despite multiple blankets and feels as though she is getting over the flu. Afebrile.
Past Medical History
Past Medical History: Hypothyroidism and Other (dementia, migraine)
Past Surgical History: Tonsilectomy and Other (family unaware of any abdominal surgeries, no scars present)
Social History
Tobacco: Non-Smoker
Alcohol: None
Personal: Partner
Living: With Family
Family History
Family History: Reviewed & Not Pertinent
Allergies / Home Medications
Allergy/AdvReac Type Severity Reaction Status Date / Time
No Known Allergies Allergy Verified 08/06/24 12:54
�Medication �Instructions �Recorded �Confirmed �Type
bismuth subsalicylate 262 mg/15 mL 524 mg PO Q1H PRN stomach issues 05/14/25 05/14/25 History
oral suspension (Pepto-Bismol)
levothyroxine 125 mcg tablet 125 mcg PO DAILY 05/14/25 05/14/25 History
rhotagix-zree-rqik 8 mg-folic 400 1 tab PO DAILY 05/14/25 05/14/25 History
mcg-K 50 mcg-lutein 300 mcg tablet
(Centrum Silver Women)
Review of Systems
-
Unable to obtain full review of systems at this time due to: Dementia
History Source: Patient and Family
All other systems: Negative unless noted
A 10 point review of systems was completed, and was negative except as per HPI.
Physical Exam
Vital Signs
Temp Pulse Resp BP Pulse Ox
97.6 F 53 16 122/56 98
05/16/25 11:00 05/16/25 11:00 05/16/25 11:00 05/16/25 11:00 05/16/25 11:00
05/15/25 05/16/25 05/17/25
06:59 06:59 06:59
Actual Weight 58 kg
Body Mass Index (BMI) 22.0
Lab Results
05/16/25 05:29
05/16/25 05:29
WBC 5.0 10^3/uL (4.8-10.8) 05/16/25 05:29
Hgb 11.5 g/dL (12.0-16.0) L 05/16/25 05:
Hct 32.2 % (37.0-47.0) L 05/16/25 05:29
Plt Count 211 10^3/uL (130-400) 05/16/25 05:29
Abs Immat Gran (auto) 0.0 10^3/uL (0-0.05) 05/14/25 22:33
Neutrophils % 60.1 % (42.2-75.2) 05/14/25 22:33
Physical Exam
General: Well Developed and Well Nourished
HEENT: Normocephalic and Moist Mucous Membranes
Respiratory: Non Labored Respirations
GI: Soft, Non Tender and Non Distended
Skin: Warm and Dry
Neuro: Awake, Alert and Oriented (x1)
Psych: Calm
Data Reviewed
-
CT Scan: Image Personally Visualized and interpreted, Report Reviewed by me, Discussed with Physician, Discussed with Patient and Discussed with Family
Labs: Labs Reviewed by me, Discussed with Physician, Discussed with Patient and Discussed with Family
Old Records: Reviewed
Assessment / Plan
-
Ms Hair is a 74 yo female with a h/o dementia (unable to offer much history) and hypothyroidism seen at bedside with her son and partner. Over the last year, she has struggled with intermittent nonbloody diarrhea and has been recently physically
declining with poor PO intakes as well. Her son does note that for about a week she has mentioned she has some abdominal discomfort which she has not been able to localize and stating she may have the flu. She is currently being treated as an
inpatient for UTI and FTT with replacement of electrolytes. She denies pain currently. Abdominal exam benign. AFVSS. No leukocytosis.
CT imaging done today in evaluation of abdominal complaints with radiology read for possible mild appendicitis. She is nontender on exam. Reviewed imaging with attending surgeon, low suspicion for appendicitis. Mild colitis is present on imaging as
well, ?infectious vs inflammatory.
--Diet and ABX for UTI as per primary team
--Low suspicion for appendicitis given benign exam and review of CT imaging, no plans for surgery
--Given mild colitis on imaging, will send stool studies for further evaluation
--- NOTE | 2025-05-16 14:48 | W.PN.UPDATE ---
Update Note
Progress Note Update
Spoke to son- [phone]
Discussed about patient's condition
He is looking for rehab placement
Case management working with family
CODE STATUS addressed
He is going to review patient's living will and get back to me. He thinks it will be likely DNR
Total time spent with the first visit in this conversation more than 50 minutes.
[2025-05-16] MEDS: NSS 1000 IV (16:20)
[2025-05-16] MEDS: ZYPREXA ZYDIS (ORALLY DISINTEGRATING) 5 MG PO (17:22)
[2025-05-16] MEDS: LEVOTHROID 75 MCG IV (17:22)
[2025-05-16] MEDS: LOVENOX 40 MG SC (17:23)
[2025-05-17] MEDS: ROCEPHIN 1000 MG IV ×2 (00:45→23:33)
[2025-05-17] MEDS: STERILE WATER FOR INJECTION 10 ML IV ×2 (00:45→23:33)
[2025-05-17 03:10] VITALS: BP 102/50
[2025-05-17 07:13] LABS: Hematocrit 31.5 % (37.0-47.0); Hemoglobin 11.3 g/dL (12.0-16.0); Mean Corp Hgb Conc. 35.9 g/dL (33.0-37.0); Mean Corpuscular Hgb 36.3 pg (27.0-31.0); Mean Corpuscular Volume 101.3 fL (81.0-99.0); Mean Platelet Volume 9.5 fL (7.4-10.4); Platelet Count 216 10^3/uL (130-400); Red Blood Cell Count 3.11 10^6/uL (4.20-5.40); Red Cell Dist. Width 19.1 % (11.5-14.5)
[2025-05-17 07:30] VITALS: BP 125/65
[2025-05-17 07:46] LABS: Blood Urea Nitrogen 3 mg/dl (7-17); Carbon Dioxide 21 mmol/L (22-30); Chloride 112 mmol/L (98-107); Estimated Creatinine Clearance 52 ml/min; Glucose 69 mg/dl (70-99); Potassium 3.4 mmol/L (3.5-5.1); Sodium 137 mmol/L (135-145); eGFR > 60.00
[2025-05-17] MEDS: PEPCID 20 MG PO (09:09)
[2025-05-17] MEDS: THERAGRAN 1 TABLET PO (09:09)
[2025-05-17] MEDS: THIAMINE INJECTION 100 MG IV (09:09)
[2025-05-17] MEDS: VITAMIN D3 (cholecalciferol) 25 MCG PO (09:09)
[2025-05-17] MEDS: NSS 1000 IV (09:10)
[2025-05-17] MEDS: KCL 40 MEQ PO (10:36)
--- NOTE | 2025-05-17 10:55 | PTCARENOTE ---
Stool samples sent to lab yesterday cancelled by lab d/t no label on specimens. Patient OOB to bathroom this AM for loose mod BM mixed with urine, patient states no GI complaints. This RN communicated with MD, no indication for repeat stool samples
at this time per MD.
--- NOTE | 2025-05-17 11:02 | W.PN.HOSP.TC ---
Today's Communication/Plan
-
Continue IV antibiotics, will transition to oral upon discharge to complete 5-day course of treatment for noncomplicated UTI
Continue supportive care
Transition to oral levothyroxine
Placement to nursing facility
Spoke with significant other Mr. Salgado.
Informed of plan of care including transitioning to oral antibiotics, supportive care and placement to nursing facility rehab versus long-term.
Assessment / Plan
Assessment / Plan
74-year-old presented with failure to thrive. Decreased p.o. intake for the past week prior to admission. Son has been struggling for 1 year. Patient also has lost weight and had a fall recently. Intermittent diarrhea
Ultrasound of the abdomen Limited exam secondary to large abdominal gas and intermittent inability to cooperation. Suboptimal visualization of pancreas kidneys and spleen. No gallstones. No gallbladder wall thickening or pericholecystic fluid CBD
not visualized. Liver is normal in size increased echotexture and diminished sound throughout transmission consistent of fatty infiltration.
CVS: S1-S2 normal
Chest: CTA B/L
Abdomen: Soft, NT / Bowel sounds present
Extremities: No edema
EDITOR MAP: Non focal exam, confused.
# FTT
Most likely secondary to advanced senile dementia.
Replace potassium and magnesium
Added Thiamine
# Hypokalemia
Unclear reasons possibly diarrhea/poor p.o. intake /hypomagnesemia/Poorly managed Hypothyroidism.
Replace potassium and magnesium
# Hypomagnesemia-replaced
# Hyponatremia-sodium 127-corrected
Possibly hypovolemic
Also TSH indicates that the patient was likely not taking levothyroxine
# Vit D Def- replace
# Elevated LFTs-repeat better.
# Hypothyroidism-question compliance as the TSH is 134
On levothyroxine 125 mcg daily
# UTI with no complications. Urine culture with sensitive E. coli. Continue ceftriaxone. Transition to oral antibiotics upon discharge to complete total of 5-day course
# Weight loss-check CT of the abdomen and pelvis with PO and IV contrast
# Intermittent diarrhea
Likely has chronic constipation
Check imaging of the abdomen
# Migraines
# Dementia
# DVT prophylaxis-Lovenox
# Full code
D/W RN at bed side
Spoke with significant other Mr. Salgado.
Informed of plan of care including transitioning to oral antibiotics, supportive care and placement to nursing facility rehab versus long-term.
Anticipated Discharge: Within 24 hours
Subjective/Interval History
-
Date of Service: May 17, 2025
Objective Data
-
Labs:
Laboratory Results
05/17/25
06:29
WBC 5.0
Hgb 11.3 L
Hct 31.5 L
Plt Count 216
Sodium 137
Potassium 3.4 L
Chloride 112 H
Carbon Dioxide 21 L
BUN 3 L
Creatinine 0.8
Glucose 69 L
Calcium 8.0 L
Vital Signs:
Vital Signs
Temp Pulse Resp BP Pulse Ox
97.9 F 54 16 125/65 99
05/17/25 07:30 05/17/25 07:30 05/17/25 07:30 05/17/25 07:30 05/17/25 09:36
I&O
05/16/25 05/17/25 05/18/25
06:59 06:59 06:59
Intake Total 690 / 690 210 / 210
Output Total 320 / 320
Balance 370 / 370 210 / 210
Physical Exam
-
General: Well Developed and No Apparent Distress
HEENT: Normocephalic, Atraumatic and Moist Mucous Membranes
Respiratory: Clear to Auscultation
Cardiac: Regular Rhythm and S1/S2; Negative Murmur, Rub or Gallop
GI: Soft, Nontender, Nondistended and Normal Bowel Sounds; Negative Organomegaly
Rectal: Deferred by Provider
Musculoskeletal: No Clubbing, No Cyanosis and No Edema
Skin: Negative Rash
Neuro: Awake, Alert, Nonfocal/Grossly Intact and Other (Oriented to name only)
[2025-05-17 11:40] VITALS: BP 132/66
--- NOTE | 2025-05-17 13:27 | PTCARENOTE ---
Patient AAO to self only, continuously setting off alarms stating she is leaving and needs to get dressed, asking for her mother and father. Patient repeatedly taking tele monitor off despite redirection, stated okay for patient to come off tele.
IVF DCed, patient ambulated to bathroom with stand by assist for hygiene, in bed at this time with alarms in place.
--- NOTE | 2025-05-17 14:04 | PN.CDI ---
CDI
- -
CDI:
Physician Documentation Request
Admit Date: 05/15/25 02:18
Dear Doctor Melissa,
Please review the following and provide your response in the progress notes.
Clinical Indicators:
- Patient admit with failure to thrive
- per H&P pmh advanced dementia
- 05/17 PN with electrolyte imbalances
- 'hypokalemia...hypomagnesemia...hyponatremia'
- 05/15 RN note 'Patient agitated and climbing out of bed, pulling tele off and pulling at IV sites'
- 05/16 RN note 'pt increasing in agitation, pulled out IV'
Please clarify in the Progress Notes and Discharge Summary which, if any of the following, is the most likely etiology of the confusion/altered mental status.
Metabolic encephalopathy - hyponatremia, hypokalemia, hypomagnesemia
Dementia with agitation
Other (please specify)
Use of terms such as suspected, likely, concern for, or probable (associated with a specific diagnosis that is being evaluated, monitored, or treated as if it exists) are acceptable and can be coded in the inpatient setting, when documented at the
time of discharge.
Thank you,
Herson Dubose RN
CDI Specialist
Please use your independent medical judgment in providing your response.
--- NOTE | 2025-05-17 15:27 | CM ---
Reviewed the chart notes and spoke with the patient's significant other via telephone. Discussed SNFs willing to offer a bed for short term. He selected [facility]. Auth started Case# [id number]; clinicals faxed to [phone].
[facility] NPI #[id number]
[facility] NPI# [id number]
[2025-05-17 15:38] VITALS: BP 124/59
[2025-05-17] MEDS: LOVENOX 40 MG SC (17:10)
[2025-05-17] MEDS: ZYPREXA 5 MG PO (17:11)
[2025-05-17 23:19] VITALS: BP 112/51
[2025-05-18] MEDS: SYNTHROID 125 MCG PO (05:42)
[2025-05-18 06:53] LABS: Blood Urea Nitrogen 2 mg/dl (7-17); Calcium 8.5 mg/dl (8.4-10.2); Carbon Dioxide 22 mmol/L (22-30); Chloride 113 mmol/L (98-107); Estimated Creatinine Clearance 52 ml/min; Glucose 77 mg/dl (70-99); Potassium 3.2 mmol/L (3.5-5.1); Sodium 140 mmol/L (135-145); eGFR > 60.00
[2025-05-18 07:55] VITALS: BP 118/67
[2025-05-18] MEDS: THIAMINE INJECTION 100 MG IV (08:30)
[2025-05-18] MEDS: VITAMIN D3 (cholecalciferol) 25 MCG PO (08:30)
[2025-05-18] MEDS: THERAGRAN 1 TABLET PO (08:30)
[2025-05-18] MEDS: PEPCID 20 MG PO (08:30)
--- NOTE | 2025-05-18 11:16 | CM ---
Addendum entered by Vonda Wang RN 05/18/25 15:08:
CM spoke with the patient's son Don at the bedside. Son in agreement with discharge plan.
Original Note:
Reviewed the chart notes and spoke to the patient's significant other via telephone. Bharat Mitchell updated on discharge plan and IMM reviewed. Patient approved for [facility] 05/17-05/21; NRD 05/21 fax to [phone]; Auth # [id number]. CM continues
to be available to patient/family and is monitoring medical plan for needs at discharge.
Plan: Discharge to [facility].
Call report to: [phone]
Fax report to: [phone]
Medical necessity and transport forms on chart.
--- NOTE | 2025-05-18 13:10 | W.DS.TRANS ---
DC Summary - [facility] All Around
-
Discharge Instructions:
Discharge Diagnosis/Procedures Dementia with failure to thrive
UTI
Diet Regular
Instructions:
Stand-Alone Forms:
Changes to Home Medications: No
Discharge Medications:
DC Medications w/original date entered in ki work
bismuth subsalicylate 262 mg/15 mL oral suspension (Pepto-Bismol) 524 mg PO Q1H PRN stomach issues 05/14/25
levothyroxine 125 mcg tablet 125 mcg PO DAILY 05/14/25
wcgleobw-fjdo-wibk 8 mg-folic 400 mcg-K 50 mcg-lutein 300 mcg tablet (Centrum Silver Women) 1 tab PO DAILY 05/14/25
cephalexin 500 mg capsule 500 mg PO BID #10 caps 05/18/25
Home Medication Changes
Pending Results: No
[2025-05-18] MEDS: IMODIUM 2 MG PO (15:08)
[2025-05-18 15:27] VITALS: BP 121/70
[2025-05-19 18:02] LABS: Vitamin B1, Whole Blood 289 nmol/L (70-180)
== END 2025-05-18 16:08 | DRG 689 ==
LOC: 2 NORTH 02:18
PROVIDERS: Hospitalist; ADMITTING PHYSICIAN Internal Medicine; ATTENDING PHYSICIAN Internal Medicine; CONSULT PHYSICIAN Surgery; EMERGENCY PHYSICIAN Emergency Medicine
DX: N39.0 Urinary tract infection, site not specified (principal); G92.8 Other toxic encephalopathy; E87.1 Hypo-osmolality and hyponatremia; R62.7 Adult failure to thrive; Z68.21 Body mass index [BMI] 21.0-21.9, adult; K52.9 Noninfective gastroenteritis and colitis, unspecified; E87.6 Hypokalemia; E86.0 Dehydration; E03.9 Hypothyroidism, unspecified; Z91.199 Patient's noncompliance with other medical treatment and regimen due to unspecified reason; E83.42 Hypomagnesemia
CPT/HCPCS: 74177; 76700; 80048; 80053; 81003; 81015; 82248; 82306; 82607; 82746; 83690; 83735; 83935; 84300; 84425; 84439; 84443; 85025; 85027; 87045; 87046; 87070; 87077; 87086; 87186; 87427; 93005; 96365; 96366; 97116; 97163; 97530; Q9967